=== PATIENT | female | born 1965 | race Caucasian/White ===

== ENCOUNTER 2018-09-08 08:57 | Inpatient (IN) ==
[2018-09-08] MEDS ORDERED: ASPIRIN 325 MG TABLET PO STA (09:30)
[2018-09-08] MEDS ORDERED: NITROGLYCERIN SL 0.4 MG TABLET SL PRN (09:30)
[2018-09-08] MEDS ORDERED: ENOXAPARIN 100 MG/ML SYRINGE SUBCUT STA (09:30)
[2018-09-08 09:37] LABS: Basophils % 0.4 % (0.0-0.8); Eosinophils # 0.2 10*3/uL (0.0-0.87); Eosinophils % 2.1 % (0.00-10.9); Hematocrit 45.2 VOL% (35.7-47.0); Hemoglobin 14.5 GM/DL (12.0-16.0); Immature Granulocytes % 0.3 %; Immature Granulocytes Absolute 0.02 #; Lymphocytes # 3.2 10*3/uL (1.4-4.0); Lymphocytes % 41.7 % (21.3-54.2); Mean Corpuscular HGB Conc 32.1 GM/DL (32-36); Mean Corpuscular Hemoglobin 31 PG (27-34); Mean Corpuscular Volume 97.2 FL (87-102); Mean Platelet Volume 11.7 FL (9.6-12.0); Monocytes # 0.7 10*3/uL (0.11-0.8); Monocytes % 8.7 % (1.7-12.7); Neutrophils # 3.5 10*3/uL (1.4-7.4); Neutrophils % 46.8 % (38.7-73.9); Platelet Count 197 T/CUMM (130-400); Red Blood Count 4.65 MC/CUMM (3.8-5.5); Red Cell Distribution Width 14.6 % (9.3-17.3); White Blood Count 7.6 T/CUMM (4-12)
[2018-09-08 10:09] LABS: Hypochromasia 1+; Ovalocytes Slight; Platelet Estimate Adequate
[2018-09-08 10:42] LABS: Alanine Aminotransferase 18 U/L (13-56); Albumin 3.4 G/DL (3.4-5.0); Alkaline Phosphatase 77 U/L (45-117); Aspartate Amino Transferase 19 U/L (0-37); Bilirubin,Total < 0.39 MG/DL (0.2-1.0); Blood Urea Nitrogen 13 MG/DL (7-18); Calcium 8.7 MG/DL (8.5-10.1); Glucose 87 MG/DL (74-106); Osmolality,Calculated 275.5 MOS/KG (273-304); Potassium 3.7 MMOL/L (3.5-5.1); Sodium 139 MMOL/L (136-145); Total Protein 7.3 G/DL (6.4-8.3)
[2018-09-08] MEDS ORDERED: ONDANSETRON 4 MG/2 ML VIAL IV PRN (11:58)
[2018-09-08] MEDS ORDERED: DOCUSATE SODIUM 100 MG CAPSULE PO PRN (11:58)
[2018-09-08] MEDS ORDERED: NICOTINE 21 MG/24 HR PATCH TRANSDERM PRN (11:58)
[2018-09-08] MEDS: ACETAMINOPHEN 325 MG TABLET PO PRN (13:41)
[2018-09-08] MEDS: ENOXAPARIN 30 MG/0.3 ML SYRINGE SUBCUT SCH (13:42)
[2018-09-08] MEDS: ESTRADIOL 1 MG TABLET PO SCH (13:45)
[2018-09-08] MEDS: SODIUM CHLORIDE 0.45% 1,000 ML IV SCH (13:47)
[2018-09-08] MEDS ORDERED: MAGNESIUM SULF RIDER 2 GM in PREMIX 1 EACH IV PRN ×2 (13:53→15:54)
[2018-09-08] MEDS ORDERED: MAGNESIUM SULF RIDER 4 GM in PREMIX 1 EACH IV PRN (13:53)
[2018-09-08] MEDS ORDERED: POTASSIUM CHLORIDE RIDER 10 MEQ in PREMIX 1 EACH IV PRN (15:54)
[2018-09-08 16:14] LABS: Troponin I < 0.015 NG/ML (0.00-0.045)
[2018-09-08] MEDS ORDERED: [UNRECOGNIZED DRUG - OTHER] PO SCH (21:00)
[2018-09-08] MEDS: GABAPENTIN 400 MG CAPSULE PO SCH (21:08)
[2018-09-08] MEDS: VENLAFAXINE XR 75 MG CAPSULE PO SCH (21:08)
[2018-09-08] MEDS: traZODone 50 MG TABLET PO SCH (21:09)
[2018-09-08] MEDS: BENZTROPINE 1 MG TABLET PO SCH (21:09)
[2018-09-08] MEDS: HALOPERIDOL 5 MG TABLET PO SCH (21:09)
[2018-09-08] MEDS: rOPINIRole 1 MG TABLET PO SCH (21:10)
[2018-09-08] MEDS: DONEPEZIL 10 MG TABLET PO SCH (21:10)
[2018-09-09] MEDS: SODIUM CHLORIDE 0.45% 1,000 ML IV SCH ×3 (03:40→11:27)
[2018-09-09 05:15] LABS: Apearance,Urine CLEAR (Clear); Bilirubin,Urine Negative (Negative); Blood, Urine Negative (Negative); Glucose,Urine (UA) Negative (Negative); Ketones,Urine Negative (Negative); Nitrite,Urine Negative (Negative); Protein,Urine Negative; RBC,Urine 2 /HPF (0-4); Squamous Epithelial Cell,Urine Occasional /HPF (0-10); Urine Color Straw (Yellow); Urine Specific Gravity 1.005 (1.001-1.035); Urine Urobilinogen < 2.0 EU/DL (0.2-1.0); WBC,Urine <1 /HPF (0-6)
[2018-09-09 05:32] LABS: Basophils % 0.4 % (0.0-0.8); Eosinophils # 0.1 10*3/uL (0.0-0.87); Eosinophils % 2.5 % (0.00-10.9); Hematocrit 38.5 VOL% (35.7-47.0); Hemoglobin 12.3 GM/DL (12.0-16.0); Lymphocytes # 2.7 10*3/uL (1.4-4.0); Mean Corpuscular HGB Conc 31.9 GM/DL (32-36); Mean Corpuscular Hemoglobin 32 PG (27-34); Mean Corpuscular Volume 98.5 FL (87-102); Mean Platelet Volume 11.9 FL (9.6-12.0); Monocytes # 0.5 10*3/uL (0.11-0.8); Monocytes % 8.9 % (1.7-12.7); Neutrophils % 37.2 % (38.7-73.9); Platelet Count 177 T/CUMM (130-400); Red Blood Count 3.91 MC/CUMM (3.8-5.5); Red Cell Distribution Width 14.4 % (9.3-17.3); White Blood Count 5.3 T/CUMM (4-12)
[2018-09-09 05:55] LABS: Potassium 3.7 MMOL/L (3.5-5.1); Risk Ratio 2.83; Thyroid Stimulating Hormone 1.33 uIU/ml (0.358-3.74); VLDL CHOLESTEROL 21.4 MG/DL
[2018-09-09 06:13] LABS: Atypical Lymphocytes Few; Eosinophils 4 % (0-10); Hypochromasia 1+; Lymphocytes 49 % (20-55); Platelet Estimate Adequate; Segmented Neutrophils 42 % (50-85); Total Cells Counted 100
[2018-09-09] MEDS ORDERED: DIAZEPAM 5 MG TABLET ONE (08:34)
[2018-09-09] MEDS ORDERED: diphenhydrAMINE CAP 50 MG CAPSULE ONE (08:34)
[2018-09-09] MEDS ORDERED: CIDER VINEGAR PO SCH (09:00)
[2018-09-09] MEDS ORDERED: Cariprazine Hcl [Vraylar] 1.5 MG PO SCH (09:00)
[2018-09-09 11:21] LABS: Barbiturates Screen,Urine Negative (Negative); Benzodiazepines Screen,Urine Negative (Negative); Cannabinoid Screen,Urine Negative (Negative); Opiate Screen,Urine Positive (Negative); Phencyclidine Screen,Urine Negative (Negative)
[2018-09-09] MEDS: HALOPERIDOL 5 MG TABLET PO SCH ×2 (11:21→20:40)
[2018-09-09] MEDS: rOPINIRole 1 MG TABLET PO SCH ×3 (11:21→20:39)
[2018-09-09] MEDS: BENZTROPINE 1 MG TABLET PO SCH ×2 (11:21→20:41)
[2018-09-09] MEDS: GABAPENTIN 400 MG CAPSULE PO SCH ×2 (11:22→20:41)
[2018-09-09] MEDS: PANTOPRAZOLE 40 MG TABLET PO SCH (11:22)
[2018-09-09] MEDS: VENLAFAXINE XR 75 MG CAPSULE PO SCH ×2 (11:22→20:41)
[2018-09-09] MEDS: ASPIRIN EC 81 MG TABLET PO SCH (11:23)
[2018-09-09] MEDS: ESTRADIOL 1 MG TABLET PO SCH (11:23)
[2018-09-09] MEDS: ENOXAPARIN 30 MG/0.3 ML SYRINGE SUBCUT SCH ×2 (11:24→13:36)
[2018-09-09] MEDS ORDERED: HEPARIN/NACL 0.9% 2 UNITS/ML 1,000 ML IV ONE (11:58)
[2018-09-09] MEDS ORDERED: diphenhydrAMINE CAP 25 MG CAPSULE PO ONE (12:00)
[2018-09-09] MEDS ORDERED: DIAZEPAM 5 MG TABLET PO ONE (12:00)
[2018-09-09] MEDS ORDERED: MIDAZOLAM 2 MG/2 ML VIAL ONE (12:33)
[2018-09-09] MEDS ORDERED: fentaNYL 100 MCG/2 ML VIAL ONE (12:33)
[2018-09-09] MEDS ORDERED: LIDOCAINE 1%/EPI INJ 20 ML VIAL ONE (13:08)
[2018-09-09] MEDS: traZODone 50 MG TABLET PO SCH (20:39)
[2018-09-09] MEDS: DONEPEZIL 10 MG TABLET PO SCH (20:41)
[2018-09-10] MEDS: ACETAMINOPHEN 325 MG TABLET PO PRN ×2 (01:15→08:43)
[2018-09-10 07:53] VITALS: BP 85/54
[2018-09-10] MEDS: GABAPENTIN 400 MG CAPSULE PO SCH (08:42)
[2018-09-10] MEDS: ASPIRIN EC 81 MG TABLET PO SCH (08:42)
[2018-09-10] MEDS: HALOPERIDOL 5 MG TABLET PO SCH (08:43)
[2018-09-10] MEDS: BENZTROPINE 1 MG TABLET PO SCH (08:44)
[2018-09-10] MEDS: ESTRADIOL 1 MG TABLET PO SCH (08:44)
[2018-09-10] MEDS: VENLAFAXINE XR 75 MG CAPSULE PO SCH (08:45)
[2018-09-10] MEDS: rOPINIRole 1 MG TABLET PO SCH (08:45)
[2018-09-10] MEDS: PANTOPRAZOLE 40 MG TABLET PO SCH (09:00)
[2018-09-10] MEDS ORDERED: methylPREDNISolone ACETATE 40 MG/1 ML VIAL IM ONE (09:56)
[2018-09-10] MEDS ORDERED: DEXAMETHASONE 4 MG/1 ML VIAL IM ONE (09:56)
[2018-09-10] MEDS ORDERED: KETOROLAC 30 MG/1 ML VIAL IM ONE (10:30)
== END 2018-09-10 11:40 | disposition home or self-care (01) | DRG 192 ==
LOC: N.ED 08:57 → SUATTDRO 11:58 → N.EDINP 11:58 → N.TELES 13:02
PROVIDERS: ADMIT Internal Medicine Nephrology; ATTEND Internal Medicine
PROC: CLCCHCL (ICD-10-PCS; 2018-09-09 12:45)